=== PATIENT | male | born 1945 | race Two or more races ===

== ENCOUNTER → 2017-03-17 | Outpatient (CLI) | payer OTHER ==
[~2017-03-17] VITALS: Ht 152.4 cm; Wt 104.3 kg
[~2017-03-17] MED LIST: ALFUZOSIN; AMOX1TAB12 PO; DERMOTIC20 ML OTIC; DILANTIN100 MG; EAR WAX DROPS15 M1 OTIC; FLAGYL500MG PO; INTESTINEX680 MG PO; KEPPRA500 MG; KETOTIFEN FUMARA5 ML; LOZARTAN; METHOCARBAMOL500 MG PO; OFLOXACIN5 ML OTIC; PIOGLITAZONE HC30 MG; PROTONIX40 MG PO; SYNTHROID50 MCG; VIMPAT50 MG; ZANTAC300 MG PO
== END | disposition home or self-care (01) ==
LOC: OFIC 805 08:02
DX: G47.33 Obstructive sleep apnea (adult) (pediatric) (principal); H61.21 Impacted cerumen, right ear; H93.13 Tinnitus, bilateral

== ENCOUNTER 2017-03-19 10:16 | Outpatient (CLI) | payer OTHER | END 2017-03-19 10:22 | disposition home or self-care (01) | LOC: RAD 10:16 | DX: M54.5 Low back pain (principal) ==

== ENCOUNTER 2017-05-07 06:33 | Outpatient (CLI) | payer OTHER ==
[2017-05-19] MEDS ORDERED: METHOCARBAMOL500 MG PO (10:40)
== END 2017-05-07 06:48 | disposition home or self-care (01) ==
LOC: LAB 06:33
DX: G40.219 Localization-related (focal) (partial) symptomatic epilepsy and epileptic syndromes with complex partial seizures, intractable, without status epilepticus (principal); E03.9 Hypothyroidism, unspecified

== ENCOUNTER 2017-06-16 09:58 | Outpatient (CLI) | payer OTHER | END 2017-06-16 13:12 | disposition home or self-care (01) | LOC: LAB 09:58 | DX: N40.1 Benign prostatic hyperplasia with lower urinary tract symptoms (principal) ==

== ENCOUNTER 2017-06-21 09:00 | Outpatient (CLI) | payer OTHER | END 2017-06-21 15:10 | disposition home or self-care (01) | LOC: SONOGRAMA 09:00 | DX: N40.1 Benign prostatic hyperplasia with lower urinary tract symptoms (principal) ==

== ENCOUNTER 2017-07-14 11:48 | Outpatient (CLI) | payer OTHER | END 2017-07-14 12:07 | disposition home or self-care (01) | LOC: SONOGRAMA 11:48 | DX: N40.0 Benign prostatic hyperplasia without lower urinary tract symptoms (principal) ==

== ENCOUNTER 2017-07-15 08:07 | Outpatient (CLI) | payer OTHER | END 2017-07-15 08:48 | disposition home or self-care (01) | LOC: LAB 08:07 | DX: N40.0 Benign prostatic hyperplasia without lower urinary tract symptoms (principal); N50.819 Testicular pain, unspecified; N32.81 Overactive bladder ==

== ENCOUNTER → 2017-09-17 | Outpatient (CLI) | payer OTHER | END | disposition home or self-care (01) | LOC: NUCLEAR 06:52 | DX: I10 Essential (primary) hypertension (principal); E11.9 Type 2 diabetes mellitus without complications ==

== ENCOUNTER 2017-11-23 11:49 | Emergency (ER) | payer OTHER ==
[~2017-11-23] VITALS: Ht 182.9 cm; Wt 112.0 kg
[2017-11-23] MEDS ORDERED: MEDROLPACK PO (14:40)
[2017-11-23] MEDS ORDERED: ZITHROMAX200 MG PO (14:40)
[2017-11-23] MEDS ORDERED: TUSSI PRES-B L120 M1 PO (14:40)
== END 2017-11-23 14:50 | disposition home or self-care (01) ==
LOC: ER 11:49
DX: B34.9 Viral infection, unspecified (principal)

== ENCOUNTER 2018-02-11 15:54 | Emergency (ER) | payer OTHER ==
[~2018-02-11] VITALS: Ht 180.3 cm; Wt 109.8 kg
[~2018-02-11 15:54] MED LIST changes: +MEDROLPACK PO; +TUSSI PRES-B L120 M1 PO; +ZITHROMAX200 MG PO
[2018-02-11] MEDS ORDERED: COZAAR100 MG (16:15)
[2018-02-11] MEDS ORDERED: CHLORTHALIDONE25 MG (16:17)
[2018-02-11] MEDS ORDERED: FORTAMET1000 MG (16:17)
[2018-02-11] MEDS ORDERED: TAMS0.4C (16:18)
[2018-02-11] MEDS ORDERED: ARICEPT5 MG (16:18)
[2018-02-11] MEDS ORDERED: SINGULAIR 10MG10 MG (16:19)
[2018-02-11] MEDS ORDERED: MYSOLINE50 MG (16:19)
[2018-02-11] MEDS ORDERED: LEXAPRO5 MG (16:19)
== END 2018-02-11 20:34 | disposition home or self-care (01) ==
LOC: ER 15:54
DX: I16.0 Hypertensive urgency (principal); I10 Essential (primary) hypertension; R07.89 Other chest pain

== ENCOUNTER 2018-03-16 09:27 | Outpatient (CLI) | payer OTHER ==
[~2018-03-16] VITALS: Ht 152.4 cm; Wt 104.3 kg
[~2018-03-16 09:27] MED LIST changes: +ARICEPT5 MG; +CHLORTHALIDONE25 MG; +COZAAR100 MG; +FORTAMET1000 MG; +LEXAPRO5 MG; +MYSOLINE50 MG; +SINGULAIR 10MG10 MG; +TAMS0.4C
[2018-03-16] MEDS ORDERED: FLONASE16 GM NASAL (13:39)
[2018-03-16] MEDS ORDERED: DERMOTIC20 ML OTIC (13:39)
== END 2018-03-16 09:45 | disposition home or self-care (01) ==
LOC: OFIC 805 09:27
DX: J31.0 Chronic rhinitis (principal); L29.8 Other pruritus

== ENCOUNTER 2018-10-27 18:10 | Inpatient (IN) | payer OTHER ==
[~2018-10-27] VITALS: Ht 180.3 cm; Wt 108.9 kg
[~2018-10-27 18:10] MED LIST changes: +FLONASE16 GM NASAL; +ROBAXIN500 MG PO
[2018-10-27] MEDS ORDERED: PROSCAR5 MG (18:20)
[2018-10-27] MEDS ORDERED: METFORMIN HCL500 MG (18:20)
[2018-10-27] MEDS ORDERED: COZAAR100 MG (18:21)
--- NOTE | 2018-10-27 18:24 | NUR ---
PTE ALERTA Y ORIENTADO X3 ACOMPANADO, PTE REFIERE DOLOR ABDOMINAL DESDE ESTA MANANA.
--- NOTE | 2018-10-27 20:12 | NUR ---
. RENEE EDUCA A PTE SOBRE TX MEDICO SALO REFIERE ENTENDER. SE SHARIFA MUESTRAS DE LA B UTILIZANDO MEDIDAS ASEPTICAS. SE COLOCA H/L A PTE EL CUAL SE ENCUENTRA PATENTE KARLOS DE EDEMA Y ENROJECIMIENTO. SE ADMINISTRAN MEDICAMENTOS A PTE LOS CUALES TOLERA.SE NOTIFICA ESTUDIO DE CT PENDIENTE A REALIZAR. PTE SE CONTINUA MONITORIANDO POR CAMBIOS.
--- NOTE | 2018-10-28 02:32 | NUR ---
SE ORIENTA A PT SOBRE PROCEDIMIENTO, SE UBICA CABECERA A 45 GRADOS Y SE INSERTA NGT #16 BAJO MEDIDAS ASEPTICAS POR NARE RT. PT TOLERA. PT PRESENTA EGRESO DE 250ML DE SECRECIONES ESPESAS COLOR AMARILLO. SE MANTIENE CONECTADO A LIS.
--- NOTE | 2018-10-28 05:54 | NUR ---
SE RECIBE MASCULINO ALERTA Y ORIENTADO POR PORFIRIO ESFERAS, EN CAMA CON BARANDAS ELEVADAS Y SEGURAS. AREA DE VENOPUNCION KARLOS DE EDEMA O ENROJECIMIENTO. SE MANTIENE EN ESPERA PARA CT SCAN ORDENADO.
--- NOTE | 2018-10-28 07:00 | NUR ---
PACIENTE ALERTA Y ORIENTADO EN JOSE PORFIRIO ESFERAS, PRESENTA BUEN PATRON RESPIRATORIO Y KARLOS DE DOLOR. CANALIZADO EN BRAZO LT PATENTE Y KARLOS DE S/S DE FLEBITIS E INFILTRACION, RECIBIENDO 0.45% NSS A 150 ML/HR. NGT EN FOSA NASAL RT CONECTADO A SUCCION INTERMITENTE BAJA DRENANDO CONTENIDO GASTRICO COLOR AMARILLO. PENDIENTE EVALUACION DE CIRUJANA FORREST A LAMAR POR "SMALL BOWEL OBSTRUCTION".
== END 2018-10-31 14:30 | disposition home or self-care (01) | DRG 390 ==
LOC: ER 18:10 → SURH 10-28 17:11
PROVIDERS: ADMIT Colon & Rectal Surgery
PROC: 0D9670Z Drainage of Stomach with Drainage Device, Via Natural or Artificial Opening (ICD-10-PCS; principal; 2018-10-29)
DX: K56.690 Other partial intestinal obstruction (principal)

== ENCOUNTER → 2018-12-29 | Outpatient (CLI) | payer OTHER ==
[~2018-12-29] MED LIST changes: +METFORMIN HCL500 MG; +PROSCAR5 MG
== END | disposition home or self-care (01) ==
LOC: TOM 07:28
DX: R10.32 Left lower quadrant pain (principal); K57.32 Diverticulitis of large intestine without perforation or abscess without bleeding

== ENCOUNTER → 2019-03-27 | Outpatient (CLI) | payer OTHER | END | disposition home or self-care (01) | LOC: RAD 13:06 | DX: R05 Cough (principal) ==

== ENCOUNTER 2019-03-31 07:21 | Outpatient (CLI) | payer OTHER | END 2019-03-31 07:28 | disposition home or self-care (01) | LOC: NUCLEAR 07:21 | DX: R94.31 Abnormal electrocardiogram [ECG] [EKG] (principal); R07.89 Other chest pain | CPT/HCPCS: A9500; J0153; 78452; 93017 ==

== ENCOUNTER 2019-12-04 13:39 | Inpatient (IN) | payer OTHER ==
[~2019-12-04] VITALS: Ht 182.9 cm; Wt 111.1 kg
[2019-12-21] MEDS ORDERED: GABAPENTIN300 MG PO (14:35)
[2019-12-21] MEDS ORDERED: INTESTINEX680 M1 PO (14:35)
== END 2019-12-21 17:40 | disposition home or self-care (01) | DRG 728 ==
LOC: ER 13:39 → SURH 21:24
PROVIDERS: ADMIT Internal Medicine; ATTEND Internal Medicine
PROC: 4A033R1 Measurement of Arterial Saturation, Peripheral, Percutaneous Approach (ICD-10-PCS; principal; 2019-12-04)
PROC: 02HV33Z Insertion of Infusion Device into Superior Vena Cava, Percutaneous Approach (ICD-10-PCS; 2019-12-16)
DX: N45.1 Epididymitis (principal); G40.89 Other seizures; N39.0 Urinary tract infection, site not specified; Z16.12 Extended spectrum beta lactamase (ESBL) resistance; I10 Essential (primary) hypertension; E11.9 Type 2 diabetes mellitus without complications; Z20.828 Contact with and (suspected) exposure to other viral communicable diseases; E83.52 Hypercalcemia; Z79.4 Long term (current) use of insulin; G47.33 Obstructive sleep apnea (adult) (pediatric); B96.29 Other Escherichia coli [E. coli] as the cause of diseases classified elsewhere

== ENCOUNTER 2020-02-09 07:30 | Outpatient (CLI) | payer OTHER ==
[~2020-02-09 07:30] MED LIST changes: +GABAPENTIN300 MG PO; +INTESTINEX680 M1 PO
== END 2020-02-09 13:47 | disposition home or self-care (01) ==
LOC: NUCLEAR 07:30
PROVIDERS: ATTEND Internal Medicine Cardiovascular Disease
DX: R07.89 Other chest pain (principal)
CPT/HCPCS: 78452; 93017; A9500; J0153

== ENCOUNTER 2020-02-19 09:45 | Outpatient (CLI) | payer OTHER | END 2020-02-19 10:09 | disposition home or self-care (01) | LOC: SONOGRAMA 09:45 | PROVIDERS: ATTEND Urology | DX: N45.3 Epididymo-orchitis (principal); I86.1 Scrotal varices ==

== ENCOUNTER 2020-03-04 09:18 | Emergency (ER) | payer OTHER ==
[~2020-03-04] VITALS: Ht 182.9 cm; Wt 112.0 kg
[2020-03-04] MEDS ORDERED: AMOX-CLAV 500-1 EACH PO (09:42)
[2020-03-04] MEDS ORDERED: DUI500 PO (16:22)
== END 2020-03-04 16:58 | disposition home or self-care (01) ==
LOC: ER 09:18
DX: M79.604 Pain in right leg (principal); M25.561 Pain in right knee; R60.0 Localized edema; Z03.818 Encounter for observation for suspected exposure to other biological agents ruled out

== ENCOUNTER 2020-04-23 10:34 | Emergency (ER) | payer OTHER ==
[~2020-04-23] VITALS: Ht 182.9 cm; Wt 113.4 kg
[~2020-04-23 10:34] MED LIST changes: +AMOX-CLAV 500-1 EACH PO; +DUI500 PO
== END 2020-04-23 18:45 | disposition home or self-care (01) ==
LOC: ER 10:34
DX: L03.115 Cellulitis of right lower limb (principal); M79.661 Pain in right lower leg

== ENCOUNTER 2020-05-14 15:11 | Emergency (ER) | payer OTHER ==
[~2020-05-14] VITALS: Ht 182.9 cm; Wt 108.9 kg
== END 2020-05-14 18:39 | disposition home or self-care (01) ==
LOC: ER 15:11
DX: S00.83XA Contusion of other part of head, initial encounter (principal); W18.39XA Other fall on same level, initial encounter; Y93.89 Activity, other specified; Y92.098 Other place in other non-institutional residence as the place of occurrence of the external cause; Y99.8 Other external cause status; R07.89 Other chest pain; Z11.52 Encounter for screening for COVID-19

== ENCOUNTER 2020-06-21 10:57 | Outpatient (CLI) | payer OTHER | END 2020-06-21 11:14 | disposition home or self-care (01) | LOC: RAD 10:57 | PROVIDERS: ATTEND Chiropractor | DX: M99.01 Segmental and somatic dysfunction of cervical region (principal); M99.02 Segmental and somatic dysfunction of thoracic region; M99.03 Segmental and somatic dysfunction of lumbar region; M99.04 Segmental and somatic dysfunction of sacral region ==

== ENCOUNTER → 2020-10-10 13:50 | Outpatient (CLI) | payer OTHER ==
[~2020-10-10 13:50] MED LIST changes: +NORFLEX100MG PO
== END | disposition home or self-care (01) ==
LOC: MRI 13:50
PROVIDERS: ATTEND Physical Medicine & Rehabilitation
DX: M43.17 Spondylolisthesis, lumbosacral region (principal); M54.5 Low back pain; M54.17 Radiculopathy, lumbosacral region
CPT/HCPCS: 72148

== ENCOUNTER 2021-03-19 08:04 | Outpatient (CLI) | payer OTHER | END 2021-03-19 15:00 | disposition home or self-care (01) | LOC: LAB 08:04 | PROVIDERS: ATTEND Internal Medicine Pulmonary Disease | DX: I10 Essential (primary) hypertension (principal) ==

== ENCOUNTER 2021-05-28 06:12 | Day surgery (SDC) | payer OTHER | END 2021-05-28 10:30 | disposition home or self-care (01) | LOC: AMB-ENDOS 06:12 | PROVIDERS: ATTEND Colon & Rectal Surgery | DX: D12.3 Benign neoplasm of transverse colon (principal); K57.30 Diverticulosis of large intestine without perforation or abscess without bleeding; Z88.6 Allergy status to analgesic agent; Z86.010 Personal history of colon polyps ==

== ENCOUNTER 2021-11-07 11:06 | Outpatient (CLI) | payer OTHER | END 2021-11-07 15:21 | disposition home or self-care (01) | LOC: SONOGRAMA 11:06 | PROVIDERS: ATTEND Urology | DX: R31.1 Benign essential microscopic hematuria (principal) ==

== ENCOUNTER 2022-03-21 11:01 | Outpatient (CLI) | payer OTHER | END 2022-03-21 11:02 | disposition home or self-care (01) | LOC: LAB 11:01 | DX: Z86.010 Personal history of colon polyps (principal) ==

== ENCOUNTER 2022-03-23 08:22 | Outpatient (CLI) | payer OTHER | END 2022-03-23 08:23 | disposition home or self-care (01) | LOC: TOM 08:22 | PROVIDERS: ATTEND Internal Medicine | DX: K57.90 Diverticulosis of intestine, part unspecified, without perforation or abscess without bleeding (principal); Z86.010 Personal history of colon polyps ==

== ENCOUNTER 2022-05-12 07:19 | Outpatient (CLI) | payer OTHER | END 2022-05-12 07:21 | disposition home or self-care (01) | LOC: NUCLEAR 07:19 | PROVIDERS: ATTEND Internal Medicine | DX: I25.10 Atherosclerotic heart disease of native coronary artery without angina pectoris (principal); R07.9 Chest pain, unspecified; E11.9 Type 2 diabetes mellitus without complications; I11.9 Hypertensive heart disease without heart failure | CPT/HCPCS: 78452; 93017; A9500; J0153 ==

== ENCOUNTER 2023-05-23 22:08 | Inpatient (IN) | payer OTHER ==
[~2023-05-23] VITALS: Ht 182.9 cm; Wt 108.9 kg
--- NOTE | 2023-05-23 22:18 | NUR ---
SE RECIBE PTE ALERTA Y ORIENTADO X3 EL CUAL REFIERE VENIR POR DOLOR ABDOMINAL EN CUADRANTE INFERIOR LIZ DESDE LA MANANA DE HOY. SE MIDEN S/V A PTE Y SE COLOCA EN AREA DE OBSERVACION.
[2023-05-23] MEDS ORDERED: FAMOTIDINE/PF 20 MG/2 ML VIAL IV PUSH ONE (23:15)
[2023-05-23] MEDS ORDERED: MEPERIDINE HCL 25 MG/ML AMPUL IV ONE (23:15)
[2023-05-23] MEDS ORDERED: METRONIDAZOLE/SODIUM CHLORIDE 500 MG/100 ML PIGGYBACK IV ONE (23:15)
[2023-05-24 00:03] LABS: HEMATOCRIT 37.3 % (39.0-48.0); HEMOGLOBIN 12.3 g/dL (13-16.00); MEAN CELL VOLUME 90.2 fL (80.0-100.00); MEAN CORPUSCULAR HEMOGLOBIN 29.7 pg (27.00-32.0); MEAN CORPUSCULAR HGB CONC 32.9 g/dl (32.0-36.0); PLATELET COUNT 183 K/uL (150-450); RED BLOOD COUNT 4.14 M/uL (4.00-6.00); RED CELL DISTRIBUTION WIDTH 14.8 % (11.5-14.5)
--- NOTE | 2023-05-24 00:11 | NUR ---
PTE ALERTA Y ORIENTADO X3. SE REALIZAN MUESTRAS DE LAB GEN ORDEN MEDICA Y BAJO MEDIDAS ASEPTICAS. SE REALIZA VENOPUNCION CON ANGIO 24 EN MANO DERECHA, AREA PATENTE. SE ADMNISTRA MEDICAMENTO GEN ORDEN MEDICA Y BAJO MEDIDAS ASEPTICAS.
[2023-05-24 00:37] LABS: ALBUMIN 4.6 gm/dL (3.4-5.0); BILIRUBIN TOTAL 0.68 mg/dL (0.3-1.2); CALCIUM 11.4 mg/dL (8.5-10.1); CREATININE SERUM 1.24 mg/dL (0.70-1.30); GFR 56.09; GLOBULINA 3.8 G/DL (2.4-3.5); POTASSIUM 4.15 mEq/L (3.5-5.1); TOTAL PROTEIN 8.4 gm/dL (6.4-8.2)
[2023-05-24 01:34] LABS: URINE APPEARANCE Turbid; URINE BILIRRUBIN Negative (NEGATIVE); URINE BLOOD Negative; URINE COLOR Yellow; URINE GLUCOSE Negative (NEGATIVE); URINE LEUKOCYTE Negative; URINE NITRATE Negative; URINE PROTEIN Trace (NEGATIVE); URINE UROBILINOGEN 0.2 E.U./dl
[2023-05-24 01:37] LABS: URINE BACTERIA 7.5 uL (0.0-1933); URINE RBC 2.8 uL (0.0-20.8); URINE WBC 2.9 uL (0.0-23.2)
[2023-05-24 02:09] LABS: URINE EPITHELIAL CELLS 0.6 uL (0.0-38.8)
[2023-05-24] MEDS ORDERED: MEPERIDINE HCL/PF 25 MG/ML VIAL IM STA (03:45)
[2023-05-24] MEDS ORDERED: PROMETHAZINE HCL 25 MG/ML AMPUL IM STA (03:45)
[2023-05-24] MEDS ORDERED: 0.9 % SODIUM CHLORIDE 1,000 ML IV ONE (04:00)
[2023-05-24] MEDS ORDERED: LEVALBUTEROL HCL 1.25 MG/3 ML SOLUTION IH SCH ×2 (04:30→09:00)
--- NOTE | 2023-05-24 04:39 | NUR ---
PTE ALERTA Y ORIENTADO X3. SE ADMNISTRA MEDICAMENTO GEN ORDEN MEDICA Y BAJO MEDIDAS ASEPTICAS, SE COLOCA NGT EN FOSA NASAL RT CON SUCCION TO LIS. SE NOTIFICA XRAYS Y TR A MS. VELASQUEZ.
--- NOTE | 2023-05-24 07:21 | NUR ---
SE RECIBE PTE DEL TURNO ANTERIOR ALERTA Y ORIENTADO X3 EN CAMA CON BARANDAS ELEVADAS. SE ORIENTA SOBRE CONTINUIDAD DE C[facility]ADO CLIN[facility]. PTE CON NGT LT TO LIS. PTE CONSULTADO CON AMELIE VALDEZ Y SYDNI DODD
[2023-05-24] MEDS ORDERED: 0.9 % SODIUM CHLORIDE 1,000 ML IV SCH (08:00)
[2023-05-24] MEDS ORDERED: PIPERACILLIN/TAZOBACTAM SODIUM 3.375 GM in 0.9 % SODIUM CHLORIDE 100 ML IV SCH (08:24)
[2023-05-24] MEDS ORDERED: DEXTROSE 50 % IN WATER 0.5 G/ML DISP.SYRIN IV PRN (08:30)
[2023-05-24] MEDS ORDERED: LEVOTHYROXINE SODIUM 100 MCG/VIAL VIAL IV SCH (08:30)
[2023-05-24] MEDS ORDERED: INSULIN LISPRO 1,000 UNIT/10 ML UNITS SUBCUTANEO PRN (08:30)
[2023-05-24] MEDS ORDERED: PANTOPRAZOLE SODIUM 40 MG/VIAL VIAL IV PUSH SCH (09:00)
[2023-05-24] MEDS ORDERED: BUDESONIDE 0.5 MG/2 ML AMPUL.NEB IH SCH (09:00)
[2023-05-24] MEDS ORDERED: LevETIRAcetam 500 MG/5 ML VIAL IV SCH (09:00)
[2023-05-24] MEDS ORDERED: LORazepam 2 MG/ML VIAL IV PUSH PRN (09:15)
[2023-05-24] MEDS ORDERED: ENALAPRILAT DIHYDRATE 1.25 MG/ML VIAL IV PRN (12:15)
[2023-05-24] MEDS ORDERED: ONDANSETRON HCL 2 MG/ML VIAL IV PRN (12:15)
[2023-05-24] MEDS ORDERED: MORPHINE SULFATE 4 MG/ML CARTRIDGE IV STA (19:27)
[2023-05-24] MEDS ORDERED: PHENOBARBITAL SODIUM 65 MG/ML IV SCH (20:08)
[2023-05-24] MEDS ORDERED: DOXAZOSIN MESYLATE 2 MG TABLET PO SCH (21:00)
[2023-05-24] MEDS ORDERED: LevETIRAcetam 5 MG/1 ML REDILUIDO IV SCH (21:00)
[2023-05-25 05:41] LABS: HEMATOCRIT 33.8 % (39.0-48.0); HEMOGLOBIN 11.5 g/dL (13-16.00); MEAN CELL VOLUME 91.4 fL (80.0-100.00); MEAN CORPUSCULAR HGB CONC 33.9 g/dl (32.0-36.0); PLATELET COUNT 153 K/uL (150-450); RED CELL DISTRIBUTION WIDTH 14.5 % (11.5-14.5)
[2023-05-25 05:58] LABS: INR 1.14; PARTIAL THROMBOPLASTIN TIME 26.9 SECONDS (22.0-34.0); PROTHROMBIN TIME 11.9 SECONDS (9.0-11.5)
[2023-05-25 06:22] LABS: PH,URINE 6.5 (5.0-8.0); URINE APPEARANCE Clear; URINE BILIRRUBIN Negative (NEGATIVE); URINE BLOOD Large; URINE COLOR Yellow; URINE EPITHELIAL CELLS 7.7 uL (0.0-38.8); URINE GLUCOSE Negative (NEGATIVE); URINE LEUKOCYTE Large; URINE NITRATE Negative; URINE PROTEIN 30 (NEGATIVE); URINE RBC 352.6 uL (0.0-20.8); URINE UROBILINOGEN 0.2 E.U./dl; URINE WBC 150.4 uL (0.0-23.2)
[2023-05-25 07:03] LABS: ALBUMIN 3.7 gm/dL (3.4-5.0); BILIRUBIN TOTAL 0.66 mg/dL (0.3-1.2); BILIRUBIN,CONJUGATED 0.26 mg/dL (0.0-0.2); BILIRUBIN,UNCONJUGATED 0.4 mg/dL (0.0-0.6); CALCIUM 9.7 mg/dL (8.5-10.1); CREATININE SERUM 0.91 mg/dL (0.70-1.30); GFR 80.16; MAGNESIUM 1.7 mg/dL (1.8-2.4); POTASSIUM 4.09 mEq/L (3.5-5.1); T4 FREE 0.61 NG/ML (0.76-1.46); TOTAL PROTEIN 6.7 gm/dL (6.4-8.2); TSH 0.895 uIU/mL (0.358-3.74)
[2023-05-25] MEDS ORDERED: DIATRIZOATE MEGLUMINE, SODIUM 30 ML BOTTLE PO ONE (07:15)
[2023-05-25 07:21] LABS: C-REACTIVE PROTEIN 0.41 MG/DL (0.00-0.29)
[2023-05-25 07:54] LABS: ERYTHROCYTE SEDIMENTATION RATE 40 mm/hr
[2023-05-25 08:24] LABS: PLATELET ESTIMATE NORMAL (NORMAL)
[2023-05-25] MEDS ORDERED: LEVOTHYROXINE SODIUM 100 MCG/VIAL VIAL IV SCH (09:00)
[2023-05-25] MEDS ORDERED: ENOXAPARIN SODIUM 40 MG/0.4 ML SYRINGE SUBCUTANEO SCH (09:00)
[2023-05-25 17:13] LABS: PROSTATIC SPECIFIC ANTIGEN 7.77 NG/ML (0.010-4.00)
[2023-05-26] MEDS ORDERED: GABAPENTIN 300 MG CAPSULE PO SCH (09:00)
[2023-05-26] MEDS ORDERED: LEVALBUTEROL HCL 1.25 MG/3 ML SOLUTION IH SCH (09:00)
[2023-05-26] MEDS ORDERED: PRIMIDONE 50 MG PO SCH (09:00)
[2023-05-26] MEDS ORDERED: LACTOBACILLUS ACIDOPHILUS 1 CAP CAP PO SCH (09:00)
[2023-05-26] MEDS ORDERED: VIMPAT 200 MG PO SCH (09:00)
[2023-05-26] MEDS ORDERED: MAGNESIUM SULFATE IN WATER 50 ML IV ONE (09:00)
[2023-05-26] MEDS ORDERED: TAMSULOSIN HCL 0.4 MG CAP PO SCH (09:00)
[2023-05-26] MEDS ORDERED: ATORVASTATIN CALCIUM 40 MG TABLET PO SCH (09:00)
[2023-05-26 13:27] LABS: ob POSITIVE (NEGATIVE)
[2023-05-26 13:29] LABS: FECAL LEUKOCYTES NEGATIVE (NEGATIVE)
[2023-05-26] MEDS ORDERED: PATIENTS OWN MEDICATION (MEDICAMENTO EN PISO) PO SCH (21:00)
[2023-05-27 04:43] LABS: HEMATOCRIT 32.6 % (39.0-48.0); HEMOGLOBIN 10.8 g/dL (13-16.00); MEAN CELL VOLUME 90.3 fL (80.0-100.00); MEAN CORPUSCULAR HEMOGLOBIN 29.9 pg (27.00-32.0); MEAN CORPUSCULAR HGB CONC 33.1 g/dl (32.0-36.0); RED BLOOD COUNT 3.61 M/uL (4.00-6.00)
[2023-05-27 04:45] LABS: PLATELET COUNT 126 K/uL (150-450)
[2023-05-27 05:05] LABS: ALBUMIN 3.3 gm/dL (3.4-5.0); BILIRUBIN TOTAL 0.62 mg/dL (0.3-1.2); CALCIUM 9.7 mg/dL (8.5-10.1); CREATININE SERUM 0.94 mg/dL (0.70-1.30); GFR 77.22; GLOBULINA 3.3 G/DL (2.4-3.5); MAGNESIUM 1.7 mg/dL (1.8-2.4); POTASSIUM 4.02 mEq/L (3.5-5.1); TOTAL PROTEIN 6.6 gm/dL (6.4-8.2)
[2023-05-27] MEDS ORDERED: LEVOTHYROXINE SODIUM 50 MCG TABLET PO SCH (06:00)
[2023-05-27] MEDS ORDERED: PRIMIDONE 50 MG TABLET PO SCH ×2 (09:00→17:00)
[2023-05-27] MEDS ORDERED: MAGNESIUM SULFATE IN WATER 50 ML IV ONE (16:45)
[2023-05-27] MEDS ORDERED: LevETIRAcetam 500 MG TAB. PO SCH (17:00)
[2023-05-27] MEDS ORDERED: METOCLOPRAMIDE HCL 5 MG/ML VIAL IV SCH (17:00)
[2023-05-27] MEDS ORDERED: PATIENTS OWN MEDICATION (MEDICAMENTO EN PISO) PO SCH (21:00)
[2023-05-28] MEDS ORDERED: LOSARTAN POTASSIUM 25 MG TABLET PO SCH (09:04)
[2023-05-28] MEDS ORDERED: TAMS0.4C PO (11:25)
[2023-05-28] MEDS ORDERED: LIPITOR40 M1 PO (11:25)
[2023-05-28] MEDS ORDERED: LOSARTAN POTASS25 MG PO (11:26)
[2023-05-28] MEDS ORDERED: DOXAZOSIN MESYLA2 MG PO (11:26)
[2023-05-28] MEDS ORDERED: LEVOTHYROXINE50 MCG PO (11:27)
[2023-05-28] MEDS ORDERED: MYSOLINE50 MG PO (11:27)
[2023-05-28] MEDS ORDERED: KEPPRA500 MG PO (11:27)
[2023-05-28] MEDS ORDERED: GABAPENTIN300 MG PO (11:27)
[2023-05-28] MEDS ORDERED: VIMPAT200 MG PO (11:28)
[2023-05-28] MEDS ORDERED: JANUMET 50-1,01 EACH PO (11:29)
== END 2023-05-28 13:28 | disposition home or self-care (01) | DRG 390 ==
LOC: ER 22:09 → ICU-2 05-24 09:45 → MEDI 05-26 08:39
PROVIDERS: Emergency Medicine; ADMIT Internal Medicine; ATTEND Internal Medicine
PROC: 02HV33Z Insertion of Infusion Device into Superior Vena Cava, Percutaneous Approach (ICD-10-PCS; principal; 2023-05-25)
DX: K56.51 Intestinal adhesions [bands], with partial obstruction (principal); I10 Essential (primary) hypertension; G40.909 Epilepsy, unspecified, not intractable, without status epilepticus; D64.9 Anemia, unspecified; D69.6 Thrombocytopenia, unspecified; K57.30 Diverticulosis of large intestine without perforation or abscess without bleeding; E11.9 Type 2 diabetes mellitus without complications; Z79.4 Long term (current) use of insulin; G47.33 Obstructive sleep apnea (adult) (pediatric); D18.02 Hemangioma of intracranial structures

== ENCOUNTER → 2024-03-27 10:11 | Outpatient (CLI) | payer OTHER ==
[~2024-03-27 10:11] MED LIST changes: +DOXAZOSIN MESYLA2 MG PO; +JANUMET 50-1,01 EACH PO; +KEPPRA500 MG PO; +LEVOTHYROXINE50 MCG PO; +LIPITOR40 M1 PO; +LOSARTAN POTASS25 MG PO; +MYSOLINE50 MG PO; +TAMS0.4C PO; +VIMPAT200 MG PO
[2024-03-27 11:08] LABS: HEMATOCRIT 36.8 % (39.0-48.0); MEAN CELL VOLUME 89.1 fL (80.0-100.00); MEAN CORPUSCULAR HGB CONC 32.5 g/dl (32.0-36.0); PLATELET COUNT 154 K/uL (150-450); RED BLOOD COUNT 4.13 M/uL (4.00-6.00); RED CELL DISTRIBUTION WIDTH 15.7 % (11.5-14.5)
[2024-03-27 11:48] LABS: ALBUMIN 3.9 gm/dL (3.4-5.0); BILIRUBIN TOTAL 0.47 mg/dL (0.3-1.2); CALCIUM 10.7 mg/dL (8.5-10.1); CHOL HDL RATIO 1.5 (0-5.0); CREATININE SERUM 0.79 mg/dL (0.70-1.30); GFR 94.13; GLOBULINA 3.6 G/DL (2.4-3.5); POTASSIUM 4.25 mEq/L (3.5-5.1); TOTAL PROTEIN 7.5 gm/dL (6.4-8.2)
== END | disposition home or self-care (01) ==
LOC: LAB 10:11
PROVIDERS: ATTEND Internal Medicine Cardiovascular Disease
DX: I11.9 Hypertensive heart disease without heart failure (principal); E78.1 Pure hyperglyceridemia; E11.9 Type 2 diabetes mellitus without complications; E50.3 Vitamin A deficiency with corneal ulceration and xerosis

== ENCOUNTER 2024-03-28 09:14 | Outpatient (CLI) | payer OTHER | END 2024-03-28 09:16 | disposition home or self-care (01) | LOC: NUCLEAR 09:14 | PROVIDERS: ATTEND Internal Medicine | DX: I50.30 Unspecified diastolic (congestive) heart failure (principal) ==

== ENCOUNTER 2024-07-30 18:16 | Emergency (ER) | payer OTHER ==
[~2024-07-30] VITALS: Ht 182.9 cm; Wt 111.6 kg
[2024-07-30] MEDS ORDERED: NITROGLYCERIN 0.4 MG/HR PATCH.TD24 TD STA (19:52)
[2024-07-30] MEDS ORDERED: NITROGLYCERIN 0.4 MG/HR PATCH.TD24 TD ONE (20:28)
[2024-07-30 21:23] LABS: BASO % 1.1 % (0.1-1.2); EOS # 0.16 (0.04-0.54); EOS % 2.1 % (0.7-7.0); HEMOGLOBIN 11.5 g/dL (13.7-17.5); LYMPH # 2.31 (1.18-3.74); LYMPH % 30.6 % (19.3-53.1); MEAN CORPUSCULAR HEMOGLOBIN 29.2 pg (25.6-32.2); MONO # 0.68 (0.24-0.82); NEUT # 4.31 (1.56-6.13); NEUT % 56.9 % (34.0-71.1); PLATELET COUNT 167 K/uL (163-369); RED BLOOD COUNT 3.94 M/uL (4.63-6.08)
[2024-07-30 21:44] LABS: INR 1.08; PARTIAL THROMBOPLASTIN TIME 27.1 SECONDS (22.0-34.0); PROTHROMBIN TIME 11.7 SECONDS (9.0-11.5)
[2024-07-30] MEDS ORDERED: ACETAMINOPHEN 500 MG GEL..CAP PO ONE ×2 (21:45→22:00)
[2024-07-30 21:49] LABS: ALBUMIN 3.9 gm/dL (3.4-5.0); BILIRUBIN TOTAL 0.29 mg/dL (0.3-1.2); CALCIUM 10.1 mg/dL (8.5-10.1); CREATININE SERUM 1.2 mg/dL (0.70-1.30); GFR 58.11; GLOBULINA 3.2 G/DL (2.4-3.5); POTASSIUM 4.08 mEq/L (3.5-5.1); TOTAL PROTEIN 7.1 gm/dL (6.4-8.2)
== END 2024-07-30 23:36 | disposition home or self-care (01) ==
LOC: ER 18:16
DX: R07.89 Other chest pain (principal); E11.9 Type 2 diabetes mellitus without complications; Z79.84 Long term (current) use of oral hypoglycemic drugs; I10 Essential (primary) hypertension; Z88.6 Allergy status to analgesic agent; Z91.013 Allergy to seafood